=== PATIENT | male | born 1980 | race Caucasian/White ===

== ENCOUNTER 2016-10-31 14:41 | Emergency (ER) | payer OTHER ==
[2016-10-31] MEDS ORDERED: PANTOPRAZOLE 40MG INJ (PROTONIX) (C9113) As Ordered ONE (15:18)
[2016-10-31 15:37] LABS: BASO # 0.1 K/mm3 (0.0-0.2); BASO % 0.8 % (0.0-1.0); EOS # 0.1 K/mm3 (0.0-0.50); EOS % 0.6 % (0.0-3.0); LARGE UNSTAINED CELL # 0.2 K/mm3 (0.0-0.4); LARGE UNSTAINED CELL % 2.2 % (0.0-4.0); LYMPH # 2.3 K/mm3 (1.5-4.5); LYMPH % 23.6 % (24.0-44.0); MEAN CORPUSCULAR HEMOGLOBIN 32.5 pg (27.0-33.0); MEAN CORPUSCULAR HGB CONC 34.9 g/dl (32.0-36.5); MEAN CORPUSCULAR VOLUME 93.2 fl (80.0-96.0); MONO # 0.6 K/mm3 (0.0-0.8); MONO % 5.7 % (0.0-5.0); NEUTROPHILS # 6.5 K/mm3 (1.8-7.7); PLATELET COUNT, AUTOMATED 295 k/mm3 (150-450); WHITE BLOOD COUNT 9.7 K/mm3 (4.0-10.0)
[2016-10-31 15:41] LABS: INR 0.94
--- NOTE | 2016-10-31 15:50 | REP ---
Clinical: Epigastric and abdominal pain. Technique: Upright view of the chest with supine and upright views of the abdomen and pelvis. Findings: Frontal upright view of the chest demonstrates no acute cardiopulmonary process or free air below the diaphragm to suspect pneumoperitoneum. Supine and upright views of the abdomen and pelvis demonstrate nonspecific bowel gas pattern without obstruction or perforation. No organomegaly. No abnormal calcifications. Skeletal structures normal for age. Impression: Nonspecific bowel gas pattern. Signed by Siddharth Leon MD 10/31/2016 03:41 P
[2016-10-31 16:05] LABS: ALBUMIN 4.6 GM/DL (3.2-5.2); ALKALINE PHOSPHATASE 95 U/L (45-117); ALT/SGPT 57 U/L (12-78); ANION GAP 11 MEQ/L (8-16); AST/SGOT 36 U/L (15-37); BILIRUBIN,DIRECT 0.1 MG/DL (0.0-0.2); BILIRUBIN,TOTAL 0.3 MG/DL (0.2-1.0); BLOOD UREA NITROGEN 14 MG/DL (7-18); CALCIUM LEVEL 9.4 MG/DL (8.5-10.1); CARBON DIOXIDE LEVEL 28 MEQ/L (21-32); CHLORIDE LEVEL 100 MEQ/L (98-107); CREATININE FOR GFR 0.95 MG/DL (0.70-1.30); GLOMERULAR FILTRATION RATE > 60.0 (>60); GLUCOSE, FASTING 95 MG/DL (70-105); POTASSIUM SERUM 3.5 MEQ/L (3.5-5.1); SODIUM LEVEL 139 MEQ/L (136-145); TOTAL PROTEIN 8.8 GM/DL (6.4-8.2)
--- NOTE | 2016-10-31 17:20 | EDDOCDS ---
Physician Documentation [facility] Name: Hosea Grewal Age: 35 yrs Sex: Male : 1980 Arrival Date: 10/31/2016 Time: 14:41 Bed I2 / M2 Private MD: No Pcp Disposition: 10/31/16 17:07 Discharged to Home/Self Care. Impression: Gastritis, unspecified - ALCOHOL INDUCED. - Condition is Stable. - Discharge Instructions: Gastritis, Adult. - Prescriptions for Prilosec 20 mg Oral Capsule - take 1 capsule by ORAL route once daily; 10 capsule. ZOFRAN ODT 4 mg - dissolve 1 tablet by ORAL route 4 times per day As needed do not chew, do not swallow whole; 10 tablet. - Medication Reconciliation, Work Release Form - 1 day, Local Pharmacy Hours form. - [facility] up: [facility]; When: 2 - 3 days; Reason: Recheck today's complaints, Continuance of care. - Problem is new. - Symptoms have improved. - Notes: USE MEDICATION INSTRUTCED, FOLLOW UP WITH THE GRADUATE MEDICAL PROGRAM, RETURN TO THE ER IF THE SYMPTOMS WORSEN OR BECOME CONCERNING Historical: - Allergies: no known allergies; - Home Meds: 1. none - PMHx: none; - PSHx: none; - Social history: Smoking status: Electronic cigarettes No barriers to communication noted, The patient speaks fluent Uzbek, Speaks appropriately for age. - : The pt / caregiver states he / she is not on anticoagulants. Home medication list is obtained from the patient. - Exposure Risk Screening:: None identified. Vital Signs: 10/31 14:43 BP 165 / 94; Pulse 91; Resp 18; Temp 98.8(O); Pulse Ox 97% on R/A; Weight 81.65 kg / lr2 180.01 lbs (R); Height 5 ft. 6 in. (167.64 cm) (R); Pain 0/10; 14:56 BP 132 / 84 LA Sitting (man/); srm 15:30 BP 130 / 84 LA Supine (auto/lg); Pulse 85; jjr 15:31 BP 136 / 93 LA Sitting (auto/lg); Pulse 86; jjr 15:31 BP 146 / 87 LA Standing (auto/lg); Pulse 81; jjr 17:17 BP 129 / 80; Pulse 88; Resp 18; Temp 98.4(O); Pulse Ox 97% on R/A; Pain 0/10; jjr 14:43 Body Mass Index 29.05 (81.65 kg, 167.64 cm) lr2 15:31 readily tolerated position changes jjr MDM: 15:04 IV Saline Lock ordered. ar2 15:04 Orthostatic VS ordered. ar2 15:04 NS 0.9% 1000 ml IV at bolus once ordered. ar2 15:04 pantoprazole 40 mg IV at bolus once ordered. ar2 15:04 Consult PFS/PSA/Oceanography Teacher: Resources/Social Work ordered. ar2 15:05 CBC with Diff Ordered. EDMS 15:05 MED Profile Ordered. EDMS 15:05 Liver Profile Ordered. EDMS 15:05 PT/INR Ordered. EDMS 15:05 Lipase Ordered. EDMS 15:05 Type & Screen Ordered. EDMS 15:06 Abdomen, Flat\E\Upright,PA Chest Ordered. EDMS 15:51 Financial registration complete. ks16 15:52 CBC with Diff Reviewed. ar2 15:52 PT/INR Reviewed. ar2 15:56 Fluid Challenge ordered. ar2 16:09 [facility] Payment Agreement was scanned into [employer] and attached to record. ks16 16:27 Liver Profile Reviewed. ck7 16:27 MED Profile Reviewed. ck7 16:27 Lipase Reviewed. ck7 16:27 Type & Screen Reviewed. ck7 16:27 Abdomen, Flat\E\Upright,PA Chest Reviewed. ck7 16:40 PSA Outpatient Referrals was scanned into [employer] and attached to record. jfb 16:40 Consult PFS/PSA/Oceanography Teacher: Resources/Social Work complete. jfb Administered Medications: 15:30 Drug: NS 0.9% 1000 ml [sodium chloride 0.9 % intravenous solution] Route: IV; Rate: jjr bolus; Site: right antecubital; 15:30 Drug: pantoprazole 40 mg [pantoprazole 40 mg intravenous solution] Route: IV; Rate: jjr bolus; Site: right antecubital; Signatures: Dispatcher MedHost EDMS Flakita Hernandez RN RN srm Raymond, Jessica, RN RN jjNed Hinton PA-C PA-C ar2 Jade Bray, PSA PSA Heri Ferreira, RPA-C RPA-Cck7 Vikki Castaneda, Reg Reg ks16 The chart was reviewed and I authenticate all verbal orders and agree with the evaluation and treatment provided.Attachments: 16:09 [facility] Payment Agreement [email or web address] MTDD
--- NOTE | 2016-10-31 17:20 | EDDOCDS ---
Nurse's Notes [facility] Name: Hosea Grewal Age: 35 yrs Sex: Male : 1980 Arrival Date: 10/31/2016 Time: 14:41 Bed I2 / M2 Private MD: No Pcp Diagnosis: Gastritis, unspecified-ALCOHOL INDUCED Presentation: 10/31 14:52 Presenting complaint: Patient states: last might dry heaved and then voited stomach srm bile with blood. for 4 days stomach has been queezy and gassy. no abd pain. Adult Sepsis Screening: The patient does not have new or worsening altered mentation. Patient's respiratory rate is less than 22. Systolic blood pressure is greater than 100. Patient has a qSOFA score of 0- Negative Sepsis Screen. Suicide/Homicide risk assessment- the patient denies having any suicidal and/or homicidal ideations and does not present with any other emotional, behavioral or mental health complaints. Status: Patient is not a service center specialist or dependent. Transition of care: patient was not received from another setting of care. 14:52 Acuity: PENNIE Level 3 srm 14:52 Method Of Arrival: Walkin/Carried/Asstd srm Triage Assessment: 14:54 General: Appears in no apparent distress, Behavior is appropriate for age, cooperative. srm Pain: Denies pain. 14:54 HIV screening NA for this visit Offered previously. srm Historical: - Allergies: no known allergies; - Home Meds: 1. none - PMHx: none; - PSHx: none; - Social history: Smoking status: Electronic cigarettes No barriers to communication noted, The patient speaks fluent Lao, Speaks appropriately for age. - : The pt / caregiver states he / she is not on anticoagulants. Home medication list is obtained from the patient. - Exposure Risk Screening:: None identified. Screenin:32 Screening information is obtained from the patient. Fall risk: No risks identified. jjr Assistance ADL's: requires no assistance with activities of daily living. Abuse/DV Screen: The patient / caregiver reports he/she is: not in a situation that causes fear, pain or injury. Nutritional screening: No deficits noted. Advance Directives: There is no active DNR order. home support is adequate. Assessment: 15:31 General: Appears in no apparent distress, well nourished, well groomed, Behavior is jjr appropriate for age. Pain: Location: epigastric area Quality of pain is described as aching, Aggravated by lying supine. Neurological: No deficits noted. Respiratory: No deficits noted. GI: Abdomen is non- distended Bowel sounds present X 4 quads. Abd is soft and non tender X 4 quads. Reports nausea. Derm: No deficits noted. 16:26 General: Appears in no apparent distress, tolerating sips of gingerale reports jjr improvement in epigastric pain. 17:19 General: Appears in no apparent distress. Pain: Denies pain. jjr Social Work Consult: 16:41 Social Work Note: Met with PT per his request to discuss treatment options for jfb alcoholism. 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 He is able to maintain employment, a relationship and is a father and that he easily stays sober when working. PT denies SI/HI or hallucinations and we reviewed referral information provided to him. Vital Signs: 14:43 BP 165 / 94; Pulse 91; Resp 18; Temp 98.8(O); Pulse Ox 97% on R/A; Weight 81.65 kg (R); lr2 Height 5 ft. 6 in. (167.64 cm) (R); Pain 0/10; 14:56 BP 132 / 84 LA Sitting (man/); srm 15:30 BP 130 / 84 LA Supine (auto/lg); Pulse 85; jjr 15:31 BP 136 / 93 LA Sitting (auto/lg); Pulse 86; jjr 15:31 BP 146 / 87 LA Standing (auto/lg); Pulse 81; jjr 17:17 BP 129 / 80; Pulse 88; Resp 18; Temp 98.4(O); Pulse Ox 97% on R/A; Pain 0/10; jjr 14:43 Body Mass Index 29.05 (81.65 kg, 167.64 cm) lr2 15:31 readily tolerated position changes jjr Vitals: 14:43 Log In Time: October 31, 2016 at 14:41. lr2 ED Course: 14:43 Patient visited by Maria Teresa Polanco. lr2 14:43 Patient moved to Waiting lr2 14:44 No Pcp is Private Physician. lr2 14:44 Patient moved to Pre RCE lr2 14:52 Patient moved to Triage 1 srm 14:53 Triage Initiated srm 14:54 Ned Gamez PA-C is PHCP. ar2 14:54 Armani Shaw MD is Attending Physician. ar2 14:54 Patient visited by Ned Gamez PA-C. ar2 15:06 Patient moved to I3 / M3 rs6 15:07 Patient moved to I2 / M2 jam1 15:30 Inserted saline lock: 20 gauge in right antecubital area and blood collected. Labs jjr drawn. (by ED staff). Sent per order to lab. 15:32 Patient visited by Anjali Prakash RN. jjr 15:34 Pt greeted and oriented to ED. Patient advised of names of staff involved in care, jam1 location of call aguilar, wait times and NPO status. Patient has correct armband on for positive identification. Placed in gown. Bed in low position. Call light in reach. Side rails up X 1. Door closed. 15:52 Abdomen, Flat\E\Upright,PA Chest Returned. EDMS 16:04 PHCP role handed off by Ned Gamez PA-C ck7 16:04 Heri Livingston RPA-C is PHCP. ck7 16:09 [facility] was [place] into AddressReport and attached to record. ks16 16:26 Patient visited by Anjali Prakash RN. jjr 16:40 PSA Outpatient Referrals was scanned into AddressReport and attached to record. jfb 17:07 Patient visited by Heri Livingston RPA-C. ck7 17:07 [facility] is Referral Physician. ck7 17:17 Discontinued lock intact, bleeding controlled, pressure dressing applied, No jjr redness/swelling at site. No procedures done that require assistance. 17:19 The patient / caregiver is instructed regarding the plan of care and ED course. jjr Administered Medications: 15:30 Drug: NS 0.9% 1000 ml [sodium chloride 0.9 % intravenous solution] Route: IV; Rate: jjr bolus; Site: right antecubital; 15:30 Drug: pantoprazole 40 mg [pantoprazole 40 mg intravenous solution] Route: IV; Rate: jjr bolus; Site: right antecubital; Order Results: Lab Order: CBC with Diff; SPEC'M 10/31/16 15:16 Test: WHITE BLOOD COUNT; Value: 9.7; Range: 4.0-10.0; Units: K/mm3; Status: F Test: RED BLOOD COUNT; Value: 5.03; Range: 4.30-6.10; Units: M/mm3; Status: F Test: HEMOGLOBIN; Value: 16.4; Range: 14.0-18.0; Units: g/dl; Status: F Test: HEMATOCRIT; Value: 46.9; Range: 42.0-52.0; Units: %; Status: F Test: MEAN CORPUSCULAR VOLUME; Value: 93.2; Range: 80.0-96.0; Units: fl; Status: F Test: MEAN CORPUSCULAR HEMOGLOBIN; Value: 32.5; Range: 27.0-33.0; Units: pg; Status: F Test: MEAN CORPUSCULAR HGB CONC; Value: 34.9; Range: 32.0-36.5; Units: g/dl; Status: F Test: RED CELL DISTRIBUTION WIDTH; Value: 12.0; Range: 11.5-14.5; Units: %; Status: F Test: PLATELET COUNT, AUTOMATED; Value: 295; Range: 150-450; Units: k/mm3; Status: F Test: NEUTROPHILS %; Value: 67.0; Range: 36.0-66.0; Abnormal: Above high normal; Units: %; Status: F Test: LYMPH %; Value: 23.6; Range: 24.0-44.0; Abnormal: Below low normal; Units: %; Status: F Test: MONO %; Value: 5.7; Range: 0.0-5.0; Abnormal: Above high normal; Units: %; Status: F Test: EOS %; Value: 0.6; Range: 0.0-3.0; Units: %; Status: F Test: BASO %; Value: 0.8; Range: 0.0-1.0; Units: %; Status: F Test: LARGE UNSTAINED CELL %; Value: 2.2; Range: 0.0-4.0; Units: %; Status: F Test: NEUTROPHILS #; Value: 6.5; Range: 1.8-7.7; Units: K/mm3; Status: F Test: LYMPH #; Value: 2.3; Range: 1.5-4.5; Units: K/mm3; Status: F Test: MONO #; Value: 0.6; Range: 0.0-0.8; Units: K/mm3; Status: F Test: EOS #; Value: 0.1; Range: 0.0-0.50; Units: K/mm3; Status: F Test: BASO #; Value: 0.1; Range: 0.0-0.2; Units: K/mm3; Status: F Test: LARGE UNSTAINED CELL #; Value: 0.2; Range: 0.0-0.4; Units: K/mm3; Status: F Lab Order: MED Profile; SPEC'M 10/31/16 15:16 Test: GLUCOSE, FASTING; Value: 95; Range: 70-105; Units: MG/DL; Status: F Test: BLOOD UREA NITROGEN; Value: 14; Range: 7-18; Units: MG/DL; Status: F Test: CREATININE FOR GFR; Value: 0.95; Range: 0.70-1.30; Units: MG/DL; Status: F Test: GLOMERULAR FILTRATION RATE; Value: > 60.0; Range: >60; Status: F Test: SODIUM LEVEL; Value: 139; Range: 136-145; Units: MEQ/L; Status: F Test: POTASSIUM SERUM; Value: 3.5; Range: 3.5-5.1; Units: MEQ/L; Status: F Test: CHLORIDE LEVEL; Value: 100; Range: 98-107; Units: MEQ/L; Status: F Test: CARBON DIOXIDE LEVEL; Value: 28; Range: 21-32; Units: MEQ/L; Status: F Test: ANION GAP; Value: 11; Range: 8-16; Units: MEQ/L; Status: F Test: CALCIUM LEVEL; Value: 9.4; Range: 8.5-10.1; Units: MG/DL; Status: F Test Note: ; Units are mL/min/1.73 m2 Chronic Kidney Disease Staging per NKF: Stage I & II GFR >=60 Normal to Mildly Decreased Stage III GFR 30-59 Moderately Decreased Stage IV GFR 15-29 Severely Decreased Stage V GFR <15 Very Little GFR Left ESRD GFR <15 on SENIOR ENVIRONMENTAL ENGINEER Lab Order: Liver Profile; [facility] 15:16 Test: AST/SGOT; Value: 36; Range: 15-37; Units: U/L; Status: F Test: ALT/SGPT; Value: 57; Range: 12-78; Units: U/L; Status: F Test: ALKALINE PHOSPHATASE; Value: 95; Range: 45-117; Units: U/L; Status: F Test: BILIRUBIN,TOTAL; Value: 0.3; Range: 0.2-1.0; Units: MG/DL; Status: F Test: BILIRUBIN,DIRECT; Value: 0.1; Range: 0.0-0.2; Units: MG/DL; Status: F Test: TOTAL PROTEIN; Value: 8.8; Range: 6.4-8.2; Abnormal: Above high normal; Units: GM/DL; Status: F Test: ALBUMIN; Value: 4.6; Range: 3.2-5.2; Units: GM/DL; Status: F Test: ALBUMIN/GLOBULIN RATIO; Value: 1.10; Range: 1.00-1.93; Status: F Lab Order: PT/INR; [facility] 15:16 Test: PROTHROMBIN TIME; Value: 12.7; Range: 12.3-14.5; Units: SECONDS; Status: F Test: INR; Value: 0.94; Status: F Test Note: ; THERAPUTIC HUMAN INR VALUES INDICATIONS NORMAL RANGES PROPHYLAXIS/TREATMENT OF: VENOUS THROMBOSIS 2.0-3.0 PULMONARY EMBOLISM 2.0-3.0 PREVENTION OF SYSTEMIC EMBOLISM FROM: TISSUE HEART VALVES 2.0-3.0 ACUTE MYOCARDIAL INFARCTION 2.0-3.0 VALVULAR HEART DISEASE 2.0-3.0 ATRIAL FIBRILLATION 2.0-3.0 MECHANICAL VALVES(HIGH RISK) 2.5-3.5 RECURRENT MYOCARDIAL INFARCTION 2.5-3.5 Lab Order: Lipase; [facility] 15:16 Test: LIPASE; Value: 225; Range: 73-393; Units: U/L; Status: F Lab Order: Type & Screen; [facility] 15:16 Test: BLOOD TYPE; Value: O POS; Status: F Test: AB SCREEN (INDIRECT CARY)VIS; Value: NEGATIVE; Status: F Radiology Order: Abdomen, Flat\E\Upright,PA Chest Test: Abdomen, Flat\E\Upright,PA Chest REASON FOR EXAMINATION: epigastric pain, hematemesis; Clinical: Epigastric and abdominal pain.; ; Technique: Upright view of the chest with supine and upright views of the; abdomen and pelvis.; ; Findings: Frontal upright view of the chest demonstrates no acute; cardiopulmonary process or free air below the diaphragm to suspect; pneumoperitoneum. Supine and upright views of the abdomen and pelvis demonstrate; nonspecific bowel gas pattern without obstruction or perforation. No; organomegaly. No abnormal calcifications. Skeletal structures normal for age.; ; Impression:; Nonspecific bowel gas pattern.; ; ; Signed by; Siddharth Leon MD 10/31/2016 03:41 P; Outcome: 17:07 Discharge ordered by Provider. ck7 17:19 Discharge Assessment: patient administered narcotics - no. The following High Risk jjr Discharge criteria are identified: None. Discharged to home ambulatory. Condition: stable. Discharge instructions given to patient, Instructed on discharge instructions, follow up and referral plans. medication usage, Demonstrated understanding of instructions, medications, Prescriptions given X 2, Work note provided to patient. No special radiology studies were completed. Property sent home with patient. 17:19 Patient left the ED. jjr Signatures: Dispatcher MedHost EDMS Flakita Hernandez, RN RN Janet Edmondson, REEL SLITTER REEL SLITTER jam1 Anjali Prakash RN RN jjr Robertshaw, Aaron, PA-C PA-C ar2 Jade Bray, PSA PSA joseb Heri Livingston, RPA-C RPA-Cck7 Jie Knight, REEL SLITTER REEL SLITTER rs6 Vikki Castaneda, Reg Reg ks16 Maria Teresa Polanco lr2 MTDD
--- NOTE | 2016-11-02 18:20 | EDDOCDS ---
Physician Documentation [facility] Name: Hosea Grewal Age: 35 yrs Sex: Male : 1980 Arrival Date: 10/31/2016 Time: 14:41 Bed I2 / M2 Private MD: No Pcp Disposition: 10/31/16 17:07 Discharged to Home/Self Care. Impression: Gastritis, unspecified - ALCOHOL INDUCED. - Condition is Stable. - Discharge Instructions: Gastritis, Adult. - Prescriptions for Prilosec 20 mg Oral Capsule - take 1 capsule by ORAL route once daily; 10 capsule. ZOFRAN ODT 4 mg - dissolve 1 tablet by ORAL route 4 times per day As needed do not chew, do not swallow whole; 10 tablet. - Medication Reconciliation, Work Release Form - 1 day, Local Pharmacy Hours form. - Follow up: [facility]; When: 2 - 3 days; Reason: Recheck today's complaints, Continuance of care. - Problem is new. - Symptoms have improved. - Notes: USE MEDICATION INSTRUTCED, FOLLOW UP WITH THE GRADUATE MEDICAL PROGRAM, RETURN TO THE ER IF THE SYMPTOMS WORSEN OR BECOME CONCERNING Historical: - Allergies: no known allergies; - Home Meds: 1. none - PMHx: none; - PSHx: none; - Social history: Smoking status: Electronic cigarettes No barriers to communication noted, The patient speaks fluent Macedonian, Speaks appropriately for age. - : The pt / caregiver states he / she is not on anticoagulants. Home medication list is obtained from the patient. - Exposure Risk Screening:: None identified. Vital Signs: 10/31 14:43 BP 165 / 94; Pulse 91; Resp 18; Temp 98.8(O); Pulse Ox 97% on R/A; Weight 81.65 kg / lr2 180.01 lbs (R); Height 5 ft. 6 in. (167.64 cm) (R); Pain 0/10; 14:56 BP 132 / 84 LA Sitting (man/); srm 15:30 BP 130 / 84 LA Supine (auto/lg); Pulse 85; jjr 15:31 BP 136 / 93 LA Sitting (auto/lg); Pulse 86; jjr 15:31 BP 146 / 87 LA Standing (auto/lg); Pulse 81; jjr 17:17 BP 129 / 80; Pulse 88; Resp 18; Temp 98.4(O); Pulse Ox 97% on R/A; Pain 0/10; jjr 14:43 Body Mass Index 29.05 (81.65 kg, 167.64 cm) lr2 15:31 readily tolerated position changes jjr MDM: 15:04 IV Saline Lock ordered. ar2 15:04 Orthostatic VS ordered. ar2 15:04 NS 0.9% 1000 ml IV at bolus once ordered. ar2 15:04 pantoprazole 40 mg IV at bolus once ordered. ar2 15:04 Consult PFS/PSA/Bisque Finisher: Resources/Social Work ordered. ar2 15:05 CBC with Diff Ordered. EDMS 15:05 MED Profile Ordered. EDMS 15:05 Liver Profile Ordered. EDMS 15:05 PT/INR Ordered. EDMS 15:05 Lipase Ordered. EDMS 15:05 Type & Screen Ordered. EDMS 15:06 Abdomen, Flat\E\Upright,PA Chest Ordered. EDMS 15:51 Financial registration complete. [email or web address] 15:52 CBC with Diff Reviewed. ar2 15:52 PT/INR Reviewed. ar2 15:56 Fluid Challenge ordered. ar2 16:09 [facility] Payment Agreement was scanned into [employer] and attached to record. ks16 16:27 Liver Profile Reviewed. ck7 16:27 MED Profile Reviewed. ck7 16:27 Lipase Reviewed. ck7 16:27 Type & Screen Reviewed. ck7 16:27 Abdomen, Flat\E\Upright,PA Chest Reviewed. ck7 16:40 PSA Outpatient Referrals was scanned into [employer] and attached to record. jfb 16:40 Consult PFS/PSA/Bisque Finisher: Resources/Social Work complete. jfb 11/01 18:25 T-Sheet-- Draft Copy was scanned into [employer] and attached to record. klr Administered Medications: 10/31 15:30 Drug: NS 0.9% 1000 ml [sodium chloride 0.9 % intravenous solution] Route: IV; Rate: jjr bolus; Site: right antecubital; 16:30 Follow up: IV Status: Completed infusion; IV Intake: 1000ml jjr 15:30 Drug: pantoprazole 40 mg [pantoprazole 40 mg intravenous solution] Route: IV; Rate: jjr bolus; Site: right antecubital; Signatures: Dispatcher MedHost EDMS Hernandez Flakita, RN RN Anjali Torrez RN RN Ned Gomez, PA-C PA-C ar2 Jade Bray, PSA PSA joseb Heri Livingston, RPA-C RPA-Cck7 Vikki Castaneda, Reg Reg ks16 Theresa Cordon The chart was reviewed and I authenticate all verbal orders and agree with the evaluation and treatment provided.Attachments: 16:09 [facility] Payment Agreement [email or web address] 11/01 18:25 T-Sheet-- Draft Copy klr Chart Complete MTDD
--- NOTE | 2016-11-02 18:20 | EDDOCDS ---
Physician Documentation [facility] Name: Hosea Grewal Age: 35 yrs Sex: Male : 1980 Arrival Date: 10/31/2016 Time: 14:41 Bed I2 / M2 Private MD: No Pcp Disposition: 10/31/16 17:07 Discharged to Home/Self Care. Impression: Gastritis, unspecified - ALCOHOL INDUCED. - Condition is Stable. - Discharge Instructions: Gastritis, Adult. - Prescriptions for Prilosec 20 mg Oral Capsule - take 1 capsule by ORAL route once daily; 10 capsule. ZOFRAN ODT 4 mg - dissolve 1 tablet by ORAL route 4 times per day As needed do not chew, do not swallow whole; 10 tablet. - Medication Reconciliation, Work Release Form - 1 day, Local Pharmacy Hours form. - Follow up: [facility]; When: 2 - 3 days; Reason: Recheck today's complaints, Continuance of care. - Problem is new. - Symptoms have improved. - Notes: USE MEDICATION INSTRUTCED, FOLLOW UP WITH THE GRADUATE MEDICAL PROGRAM, RETURN TO THE ER IF THE SYMPTOMS WORSEN OR BECOME CONCERNING Historical: - Allergies: no known allergies; - Home Meds: 1. none - PMHx: none; - PSHx: none; - Social history: Smoking status: Electronic cigarettes No barriers to communication noted, The patient speaks fluent Polish, Speaks appropriately for age. - : The pt / caregiver states he / she is not on anticoagulants. Home medication list is obtained from the patient. - Exposure Risk Screening:: None identified. Vital Signs: 10/31 14:43 BP 165 / 94; Pulse 91; Resp 18; Temp 98.8(O); Pulse Ox 97% on R/A; Weight 81.65 kg / lr2 180.01 lbs (R); Height 5 ft. 6 in. (167.64 cm) (R); Pain 0/10; 14:56 BP 132 / 84 LA Sitting (man/); srm 15:30 BP 130 / 84 LA Supine (auto/lg); Pulse 85; jjr 15:31 BP 136 / 93 LA Sitting (auto/lg); Pulse 86; jjr 15:31 BP 146 / 87 LA Standing (auto/lg); Pulse 81; jjr 17:17 BP 129 / 80; Pulse 88; Resp 18; Temp 98.4(O); Pulse Ox 97% on R/A; Pain 0/10; jjr 14:43 Body Mass Index 29.05 (81.65 kg, 167.64 cm) lr2 15:31 readily tolerated position changes jjr MDM: 15:04 IV Saline Lock ordered. ar2 15:04 Orthostatic VS ordered. ar2 15:04 NS 0.9% 1000 ml IV at bolus once ordered. ar2 15:04 pantoprazole 40 mg IV at bolus once ordered. ar2 15:04 Consult PFS/PSA/Special Education Professional: Resources/Social Work ordered. ar2 15:05 CBC with Diff Ordered. EDMS 15:05 MED Profile Ordered. EDMS 15:05 Liver Profile Ordered. EDMS 15:05 PT/INR Ordered. EDMS 15:05 Lipase Ordered. EDMS 15:05 Type & Screen Ordered. EDMS 15:06 Abdomen, Flat\E\Upright,PA Chest Ordered. EDMS 15:51 Financial registration complete. [email or web address] 15:52 CBC with Diff Reviewed. ar2 15:52 PT/INR Reviewed. ar2 15:56 Fluid Challenge ordered. ar2 16:09 ON LICENSE OF [facility] Payment Agreement was scanned into [employer] and attached to record. [email or web address] 16:27 Liver Profile Reviewed. ck7 16:27 MED Profile Reviewed. ck7 16:27 Lipase Reviewed. ck7 16:27 Type & Screen Reviewed. ck7 16:27 Abdomen, Flat\E\Upright,PA Chest Reviewed. ck7 16:40 PSA Outpatient Referrals was scanned into [employer] and attached to record. jfb 16:40 Consult PFS/PSA/Special Education Professional: Resources/Social Work complete. jfb 11/01 18:25 T-Sheet-- Draft Copy was scanned into [employer] and attached to record. klr Administered Medications: 10/31 15:30 Drug: NS 0.9% 1000 ml [sodium chloride 0.9 % intravenous solution] Route: IV; Rate: jjr bolus; Site: right antecubital; 16:30 Follow up: IV Status: Completed infusion; IV Intake: 1000ml jjr 15:30 Drug: pantoprazole 40 mg [pantoprazole 40 mg intravenous solution] Route: IV; Rate: jjr bolus; Site: right antecubital; Signatures: Dispatcher MedHost EDMS Hernandez Flakita, RN RN Anjali Torrez RN RN Ned Gomez, PA-C PA-C ar2 Jade Bray, PSA PSA joseb Heri Livingston, RPA-C RPA-Cck7 Vikki Castaneda, Reg Reg ks16 Theresa Cordon The chart was reviewed and I authenticate all verbal orders and agree with the evaluation and treatment provided.Attachments: 16:09 ON LICENSE OF [facility] Payment Agreement [email or web address] 11/01 18:25 T-Sheet-- Draft Copy klr Chart Complete MTDD
--- NOTE | 2016-11-02 18:20 | EDDOCDS ---
Nurse's Notes [facility] Name: Hosea Grewal Age: 35 yrs Sex: Male : 1980 Arrival Date: 10/31/2016 Time: 14:41 Bed I2 / M2 Private MD: No Pcp Diagnosis: Gastritis, unspecified-ALCOHOL INDUCED Presentation: 10/31 14:52 Presenting complaint: Patient states: last might dry heaved and then voited stomach srm bile with blood. for 4 days stomach has been queezy and gassy. no abd pain. Adult Sepsis Screening: The patient does not have new or worsening altered mentation. Patient's respiratory rate is less than 22. Systolic blood pressure is greater than 100. Patient has a qSOFA score of 0- Negative Sepsis Screen. Suicide/Homicide risk assessment- the patient denies having any suicidal and/or homicidal ideations and does not present with any other emotional, behavioral or mental health complaints. 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 Transition of care: patient was not received from another setting of care. 14:52 Acuity: PENNIE Level 3 srm 14:52 Method Of Arrival: Walkin/Carried/Asstd srm Triage Assessment: 14:54 General: Appears in no apparent distress, Behavior is appropriate for age, cooperative. srm Pain: Denies pain. 14:54 HIV screening NA for this visit Offered previously. srm Historical: - Allergies: no known allergies; - Home Meds: 1. none - PMHx: none; - PSHx: none; - Social history: Smoking status: Electronic cigarettes No barriers to communication noted, The patient speaks fluent Lithuanian, Speaks appropriately for age. - : The pt / caregiver states he / she is not on anticoagulants. Home medication list is obtained from the patient. - Exposure Risk Screening:: None identified. Screenin:32 Screening information is obtained from the patient. Fall risk: No risks identified. jjr Assistance ADL's: requires no assistance with activities of daily living. Abuse/DV Screen: The patient / caregiver reports he/she is: not in a situation that causes fear, pain or injury. Nutritional screening: No deficits noted. Advance Directives: There is no active DNR order. home support is adequate. Assessment: 15:31 General: Appears in no apparent distress, well nourished, well groomed, Behavior is jjr appropriate for age. Pain: Location: epigastric area Quality of pain is described as aching, Aggravated by lying supine. Neurological: No deficits noted. Respiratory: No deficits noted. GI: Abdomen is non- distended Bowel sounds present X 4 quads. Abd is soft and non tender X 4 quads. Reports nausea. Derm: No deficits noted. 16:26 General: Appears in no apparent distress, tolerating sips of gingerale reports jjr improvement in epigastric pain. 17:19 General: Appears in no apparent distress. Pain: Denies pain. jjr Social Work Consult: 16:41 Social Work Note: Met with PT per his request to discuss treatment options for jfb alcoholism. 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 He is able to maintain employment, a relationship and is a father and that he easily stays sober when working. PT denies SI/HI or hallucinations and we reviewed referral information provided to him. Vital Signs: 14:43 BP 165 / 94; Pulse 91; Resp 18; Temp 98.8(O); Pulse Ox 97% on R/A; Weight 81.65 kg (R); lr2 Height 5 ft. 6 in. (167.64 cm) (R); Pain 0/10; 14:56 BP 132 / 84 LA Sitting (man/); srm 15:30 BP 130 / 84 LA Supine (auto/lg); Pulse 85; jjr 15:31 BP 136 / 93 LA Sitting (auto/lg); Pulse 86; jjr 15:31 BP 146 / 87 LA Standing (auto/lg); Pulse 81; jjr 17:17 BP 129 / 80; Pulse 88; Resp 18; Temp 98.4(O); Pulse Ox 97% on R/A; Pain 0/10; jjr 14:43 Body Mass Index 29.05 (81.65 kg, 167.64 cm) lr2 15:31 readily tolerated position changes jjr Vitals: 14:43 Log In Time: October 31, 2016 at 14:41. lr2 ED Course: 14:43 Patient visited by Maria Teresa Polanco. lr2 14:43 Patient moved to Waiting lr2 14:44 No Pcp is Private Physician. lr2 14:44 Patient moved to Pre RCE lr2 14:52 Patient moved to Triage 1 srm 14:53 Triage Initiated srm 14:54 Ned Gamez PA-C is PHCP. ar2 14:54 Armani Shaw MD is Attending Physician. ar2 14:54 Patient visited by Ned Gamez PA-C. ar2 15:06 Patient moved to I3 / M3 rs6 15:07 Patient moved to I2 / M2 jam1 15:30 Inserted saline lock: 20 gauge in right antecubital area and blood collected. Labs jjr drawn. (by ED staff). Sent per order to lab. 15:32 Patient visited by Anjali Prakash RN. jjr 15:34 Pt greeted and oriented to ED. Patient advised of names of staff involved in care, jam1 location of call aguilar, wait times and NPO status. Patient has correct armband on for positive identification. Placed in gown. Bed in low position. Call light in reach. Side rails up X 1. Door closed. 15:52 Abdomen, Flat\E\Upright,PA Chest Returned. EDMS 16:04 PHCP role handed off by Ned Gamez PA-C ck7 16:04 Heri Livingston RPA-C is PHCP. ck7 16:09 [facility] [place] was [place] into [employer] and attached to record. ks16 16:26 Patient visited by Anjali Prakash RN. jjr 16:40 PSA Outpatient Referrals was scanned into [employer] and attached to record. jfb 17:07 Patient visited by Heri Livingston RPA-C. ck7 17:07 [facility] is Referral Physician. ck7 17:17 Discontinued lock intact, bleeding controlled, pressure dressing applied, No jjr redness/swelling at site. No procedures done that require assistance. 17:19 The patient / caregiver is instructed regarding the plan of care and ED course. jjr 11/01 18:25 T-Sheet-- Draft Copy was scanned into [employer] and attached to record. klr Administered Medications: 10/31 15:30 Drug: NS 0.9% 1000 ml [sodium chloride 0.9 % intravenous solution] Route: IV; Rate: jjr bolus; Site: right antecubital; 16:30 Follow up: IV Status: Completed infusion; IV Intake: 1000ml jjr 15:30 Drug: pantoprazole 40 mg [pantoprazole 40 mg intravenous solution] Route: IV; Rate: jjr bolus; Site: right antecubital; Intake: 16:30 IV: 1000.00ml; Total: 1000.00ml. jjr Order Results: Lab Order: CBC with Diff; SPEC'M 10/31/16 15:16 Test: WHITE BLOOD COUNT; Value: 9.7; Range: 4.0-10.0; Units: K/mm3; Status: F Test: RED BLOOD COUNT; Value: 5.03; Range: 4.30-6.10; Units: M/mm3; Status: F Test: HEMOGLOBIN; Value: 16.4; Range: 14.0-18.0; Units: g/dl; Status: F Test: HEMATOCRIT; Value: 46.9; Range: 42.0-52.0; Units: %; Status: F Test: MEAN CORPUSCULAR VOLUME; Value: 93.2; Range: 80.0-96.0; Units: fl; Status: F Test: MEAN CORPUSCULAR HEMOGLOBIN; Value: 32.5; Range: 27.0-33.0; Units: pg; Status: F Test: MEAN CORPUSCULAR HGB CONC; Value: 34.9; Range: 32.0-36.5; Units: g/dl; Status: F Test: RED CELL DISTRIBUTION WIDTH; Value: 12.0; Range: 11.5-14.5; Units: %; Status: F Test: PLATELET COUNT, AUTOMATED; Value: 295; Range: 150-450; Units: k/mm3; Status: F Test: NEUTROPHILS %; Value: 67.0; Range: 36.0-66.0; Abnormal: Above high normal; Units: %; Status: F Test: LYMPH %; Value: 23.6; Range: 24.0-44.0; Abnormal: Below low normal; Units: %; Status: F Test: MONO %; Value: 5.7; Range: 0.0-5.0; Abnormal: Above high normal; Units: %; Status: F Test: EOS %; Value: 0.6; Range: 0.0-3.0; Units: %; Status: F Test: BASO %; Value: 0.8; Range: 0.0-1.0; Units: %; Status: F Test: LARGE UNSTAINED CELL %; Value: 2.2; Range: 0.0-4.0; Units: %; Status: F Test: NEUTROPHILS #; Value: 6.5; Range: 1.8-7.7; Units: K/mm3; Status: F Test: LYMPH #; Value: 2.3; Range: 1.5-4.5; Units: K/mm3; Status: F Test: MONO #; Value: 0.6; Range: 0.0-0.8; Units: K/mm3; Status: F Test: EOS #; Value: 0.1; Range: 0.0-0.50; Units: K/mm3; Status: F Test: BASO #; Value: 0.1; Range: 0.0-0.2; Units: K/mm3; Status: F Test: LARGE UNSTAINED CELL #; Value: 0.2; Range: 0.0-0.4; Units: K/mm3; Status: F Lab Order: MED Profile; SPEC'M 10/31/16 15:16 Test: GLUCOSE, FASTING; Value: 95; Range: 70-105; Units: MG/DL; Status: F Test: BLOOD UREA NITROGEN; Value: 14; Range: 7-18; Units: MG/DL; Status: F Test: CREATININE FOR GFR; Value: 0.95; Range: 0.70-1.30; Units: MG/DL; Status: F Test: GLOMERULAR FILTRATION RATE; Value: > 60.0; Range: >60; Status: F Test: SODIUM LEVEL; Value: 139; Range: 136-145; Units: MEQ/L; Status: F Test: POTASSIUM SERUM; Value: 3.5; Range: 3.5-5.1; Units: MEQ/L; Status: F Test: CHLORIDE LEVEL; Value: 100; Range: 98-107; Units: MEQ/L; Status: F Test: CARBON DIOXIDE LEVEL; Value: 28; Range: 21-32; Units: MEQ/L; Status: F Test: ANION GAP; Value: 11; Range: 8-16; Units: MEQ/L; Status: F Test: CALCIUM LEVEL; Value: 9.4; Range: 8.5-10.1; Units: MG/DL; Status: F Test Note: ; Units are mL/min/1.73 m2 Chronic Kidney Disease Staging per NKF: Stage I & II GFR >=60 Normal to Mildly Decreased Stage III GFR 30-59 Moderately Decreased Stage IV GFR 15-29 Severely Decreased Stage V GFR <15 Very Little GFR Left ESRD GFR <15 on ENVIRONMENTAL ENGINEERING MANAGER Lab Order: Liver Profile; SPEC'10/31/16 15:16 Test: AST/SGOT; Value: 36; Range: 15-37; Units: U/L; Status: F Test: ALT/SGPT; Value: 57; Range: 12-78; Units: U/L; Status: F Test: ALKALINE PHOSPHATASE; Value: 95; Range: 45-117; Units: U/L; Status: F Test: BILIRUBIN,TOTAL; Value: 0.3; Range: 0.2-1.0; Units: MG/DL; Status: F Test: BILIRUBIN,DIRECT; Value: 0.1; Range: 0.0-0.2; Units: MG/DL; Status: F Test: TOTAL PROTEIN; Value: 8.8; Range: 6.4-8.2; Abnormal: Above high normal; Units: GM/DL; Status: F Test: ALBUMIN; Value: 4.6; Range: 3.2-5.2; Units: GM/DL; Status: F Test: ALBUMIN/GLOBULIN RATIO; Value: 1.10; Range: 1.00-1.93; Status: F Lab Order: PT/INR; SPEC10/31/16 15:16 Test: PROTHROMBIN TIME; Value: 12.7; Range: 12.3-14.5; Units: SECONDS; Status: F Test: INR; Value: 0.94; Status: F Test Note: ; THERAPUTIC HUMAN INR VALUES INDICATIONS NORMAL RANGES PROPHYLAXIS/TREATMENT OF: VENOUS THROMBOSIS 2.0-3.0 PULMONARY EMBOLISM 2.0-3.0 PREVENTION OF SYSTEMIC EMBOLISM FROM: TISSUE HEART VALVES 2.0-3.0 ACUTE MYOCARDIAL INFARCTION 2.0-3.0 VALVULAR HEART DISEASE 2.0-3.0 ATRIAL FIBRILLATION 2.0-3.0 MECHANICAL VALVES(HIGH RISK) 2.5-3.5 RECURRENT MYOCARDIAL INFARCTION 2.5-3.5 Lab Order: Lipase; SPEC'10/31/16 15:16 Test: LIPASE; Value: 225; Range: 73-393; Units: U/L; Status: F Lab Order: Type & Screen; SPEC'M 10/31/16 15:16 Test: BLOOD TYPE; Value: O POS; Status: F Test: AB SCREEN (INDIRECT CARY)VIS; Value: NEGATIVE; Status: F Radiology Order: Abdomen, Flat\E\Upright,PA Chest Test: Abdomen, Flat\E\Upright,PA Chest REASON FOR EXAMINATION: epigastric pain, hematemesis; Clinical: Epigastric and abdominal pain.; ; Technique: Upright view of the chest with supine and upright views of the; abdomen and pelvis.; ; Findings: Frontal upright view of the chest demonstrates no acute; cardiopulmonary process or free air below the diaphragm to suspect; pneumoperitoneum. Supine and upright views of the abdomen and pelvis demonstrate; nonspecific bowel gas pattern without obstruction or perforation. No; organomegaly. No abnormal calcifications. Skeletal structures normal for age.; ; Impression:; Nonspecific bowel gas pattern.; ; ; Signed by; Siddharth Leon MD 10/31/2016 03:41 P; Outcome: 17:07 Discharge ordered by Provider. ck7 17:19 Discharge Assessment: patient administered narcotics - no. The following High Risk jjr Discharge criteria are identified: None. Discharged to home ambulatory. Condition: stable. Discharge instructions given to patient, Instructed on discharge instructions, follow up and referral plans. medication usage, Demonstrated understanding of instructions, medications, Prescriptions given X 2, Work note provided to patient. No special radiology studies were completed. Property sent home with patient. 17:19 Patient left the ED. jjr Signatures: Dispatcher [employer] EDMS Flakita Hernandez, RN RN Janet Edmondson, HORSER UP HORSER UP jam1 Anjali Prakash, FRANCISCO RN jNed Banegas, PA-C PA-C ar2 Jade Bray, PSA PSA joseb Heri Livingston, RPA-C [id number] Jie Knight, HORSER UP HORSER UP rs6 Vikki Castaneda, Reg Reg ks16 Theresa Cordon Laura lr2 Chart Complete MTDD
--- NOTE | 2016-11-02 21:03 | EDDOCDS ---
Physician Documentation [facility] Name: Hosea Grewal Age: 35 yrs Sex: Male : 1980 Arrival Date: 10/31/2016 Time: 14:41 Bed I2 / M2 Private MD: No Pcp Disposition: 10/31/16 17:07 Discharged to Home/Self Care. Impression: Gastritis, unspecified - ALCOHOL INDUCED. - Condition is Stable. - Discharge Instructions: Gastritis, Adult. - Prescriptions for Prilosec 20 mg Oral Capsule - take 1 capsule by ORAL route once daily; 10 capsule. ZOFRAN ODT 4 mg - dissolve 1 tablet by ORAL route 4 times per day As needed do not chew, do not swallow whole; 10 tablet. - Medication Reconciliation, Work Release Form - 1 day, Local Pharmacy Hours form. - [facility] up[facility]; When: 2 - 3 days; Reason: Recheck today's complaints, Continuance of care. - Problem is new. - Symptoms have improved. - Notes: USE MEDICATION INSTRUTCED, FOLLOW UP WITH THE GRADUATE MEDICAL PROGRAM, RETURN TO THE ER IF THE SYMPTOMS WORSEN OR BECOME CONCERNING Historical: - Allergies: no known allergies; - Home Meds: 1. none - PMHx: none; - PSHx: none; - Social history: Smoking status: Electronic cigarettes No barriers to communication noted, The patient speaks fluent Urdu, Speaks appropriately for age. - : The pt / caregiver states he / she is not on anticoagulants. Home medication list is obtained from the patient. - Exposure Risk Screening:: None identified. Vital Signs: 10/31 14:43 BP 165 / 94; Pulse 91; Resp 18; Temp 98.8(O); Pulse Ox 97% on R/A; Weight 81.65 kg / lr2 180.01 lbs (R); Height 5 ft. 6 in. (167.64 cm) (R); Pain 0/10; 14:56 BP 132 / 84 LA Sitting (man/); srm 15:30 BP 130 / 84 LA Supine (auto/lg); Pulse 85; jjr 15:31 BP 136 / 93 LA Sitting (auto/lg); Pulse 86; jjr 15:31 BP 146 / 87 LA Standing (auto/lg); Pulse 81; jjr 17:17 BP 129 / 80; Pulse 88; Resp 18; Temp 98.4(O); Pulse Ox 97% on R/A; Pain 0/10; jjr 14:43 Body Mass Index 29.05 (81.65 kg, 167.64 cm) lr2 15:31 readily tolerated position changes jjr MDM: 15:04 IV Saline Lock ordered. ar2 15:04 Orthostatic VS ordered. ar2 15:04 NS 0.9% 1000 ml IV at bolus once ordered. ar2 15:04 pantoprazole 40 mg IV at bolus once ordered. ar2 15:04 Consult PFS/PSA/Log Feeder: Resources/Social Work ordered. ar2 15:05 CBC with Diff Ordered. EDMS 15:05 MED Profile Ordered. EDMS 15:05 Liver Profile Ordered. EDMS 15:05 PT/INR Ordered. EDMS 15:05 Lipase Ordered. EDMS 15:05 Type & Screen Ordered. EDMS 15:06 Abdomen, Flat\E\Upright,PA Chest Ordered. EDMS 15:51 Financial registration complete. ks16 15:52 CBC with Diff Reviewed. ar2 15:52 PT/INR Reviewed. ar2 15:56 Fluid Challenge ordered. ar2 16:09 [facility] Payment Agreement was scanned into [employer] and attached to record. ks16 16:27 Liver Profile Reviewed. ck7 16:27 MED Profile Reviewed. ck7 16:27 Lipase Reviewed. ck7 16:27 Type & Screen Reviewed. ck7 16:27 Abdomen, Flat\E\Upright,PA Chest Reviewed. ck7 16:40 PSA Outpatient Referrals was scanned into [employer] and attached to record. jfb 16:40 Consult PFS/PSA/Log Feeder: Resources/Social Work complete. jfb 11/01 18:25 T-Sheet-- Draft Copy was scanned into [employer] and attached to record. klr Administered Medications: 10/31 15:30 Drug: NS 0.9% 1000 ml [sodium chloride 0.9 % intravenous solution] Route: IV; Rate: jjr bolus; Site: right antecubital; 16:30 Follow up: IV Status: Completed infusion; IV Intake: 1000ml jjr 15:30 Drug: pantoprazole 40 mg [pantoprazole 40 mg intravenous solution] Route: IV; Rate: jjr bolus; Site: right antecubital; Signatures: Dispatcher [employer] EDMS Hernandez Flakita, RN RN Anjali Torrez RN RN Ned Gomez, PA-C PA-C ar2 Jade Bray, PSA PSA joseb Heri Livingston, RPA-C [id number] Vikki Castaneda, Reg Reg ks16 Theresa Cordon The chart was reviewed and I authenticate all verbal orders and agree with the evaluation and treatment provided.Attachments: 16:09 [facility] Payment Agreement [email or web address] 11/01 18:25 T-Sheet-- Draft Copy klr Chart Complete MTDD
--- NOTE | 2016-11-02 21:03 | EDDOCDS ---
Physician Documentation [facility] Name: Hosea Grewal Age: 35 yrs Sex: Male : 1980 Arrival Date: 10/31/2016 Time: 14:41 Bed I2 / M2 Private MD: No Pcp Disposition: 10/31/16 17:07 Discharged to Home/Self Care. Impression: Gastritis, unspecified - ALCOHOL INDUCED. - Condition is Stable. - Discharge Instructions: Gastritis, Adult. - Prescriptions for Prilosec 20 mg Oral Capsule - take 1 capsule by ORAL route once daily; 10 capsule. ZOFRAN ODT 4 mg - dissolve 1 tablet by ORAL route 4 times per day As needed do not chew, do not swallow whole; 10 tablet. - Medication Reconciliation, Work Release Form - 1 day, Local Pharmacy Hours form. - Follow up: [facility]; When: 2 - 3 days; Reason: Recheck today's complaints, Continuance of care. - Problem is new. - Symptoms have improved. - Notes: USE MEDICATION INSTRUTCED, FOLLOW UP WITH THE GRADUATE MEDICAL PROGRAM, RETURN TO THE ER IF THE SYMPTOMS WORSEN OR BECOME CONCERNING Historical: - Allergies: no known allergies; - Home Meds: 1. none - PMHx: none; - PSHx: none; - Social history: Smoking status: Electronic cigarettes No barriers to communication noted, The patient speaks fluent Maori, Speaks appropriately for age. - : The pt / caregiver states he / she is not on anticoagulants. Home medication list is obtained from the patient. - Exposure Risk Screening:: None identified. Vital Signs: 10/31 14:43 BP 165 / 94; Pulse 91; Resp 18; Temp 98.8(O); Pulse Ox 97% on R/A; Weight 81.65 kg / lr2 180.01 lbs (R); Height 5 ft. 6 in. (167.64 cm) (R); Pain 0/10; 14:56 BP 132 / 84 LA Sitting (man/); srm 15:30 BP 130 / 84 LA Supine (auto/lg); Pulse 85; jjr 15:31 BP 136 / 93 LA Sitting (auto/lg); Pulse 86; jjr 15:31 BP 146 / 87 LA Standing (auto/lg); Pulse 81; jjr 17:17 BP 129 / 80; Pulse 88; Resp 18; Temp 98.4(O); Pulse Ox 97% on R/A; Pain 0/10; jjr 14:43 Body Mass Index 29.05 (81.65 kg, 167.64 cm) lr2 15:31 readily tolerated position changes jjr MDM: 15:04 IV Saline Lock ordered. ar2 15:04 Orthostatic VS ordered. ar2 15:04 NS 0.9% 1000 ml IV at bolus once ordered. ar2 15:04 pantoprazole 40 mg IV at bolus once ordered. ar2 15:04 Consult PFS/PSA/Community Service Coordinator: Resources/Social Work ordered. ar2 15:05 CBC with Diff Ordered. EDMS 15:05 MED Profile Ordered. EDMS 15:05 Liver Profile Ordered. EDMS 15:05 PT/INR Ordered. EDMS 15:05 Lipase Ordered. EDMS 15:05 Type & Screen Ordered. EDMS 15:06 Abdomen, Flat\E\Upright,PA Chest Ordered. EDMS 15:51 Financial registration complete. [email or web address] 15:52 CBC with Diff Reviewed. ar2 15:52 PT/INR Reviewed. ar2 15:56 Fluid Challenge ordered. ar2 16:09 [facility] Payment Agreement was scanned into [employer] and attached to record. ks16 16:27 Liver Profile Reviewed. ck7 16:27 MED Profile Reviewed. ck7 16:27 Lipase Reviewed. ck7 16:27 Type & Screen Reviewed. ck7 16:27 Abdomen, Flat\E\Upright,PA Chest Reviewed. ck7 16:40 PSA Outpatient Referrals was scanned into [employer] and attached to record. jfb 16:40 Consult PFS/PSA/Community Service Coordinator: Resources/Social Work complete. jfb 11/01 18:25 T-Sheet-- Draft Copy was scanned into [employer] and attached to record. klr Administered Medications: 10/31 15:30 Drug: NS 0.9% 1000 ml [sodium chloride 0.9 % intravenous solution] Route: IV; Rate: jjr bolus; Site: right antecubital; 16:30 Follow up: IV Status: Completed infusion; IV Intake: 1000ml jjr 15:30 Drug: pantoprazole 40 mg [pantoprazole 40 mg intravenous solution] Route: IV; Rate: jjr bolus; Site: right antecubital; Signatures: Dispatcher [employer] EDMS Hernandez Flakita, RN RN Anjali Torrez RN RN Ned Gomez, PA-C PA-C ar2 Jade Bray, PSA PSA joseb Heri Livingston, RPA-C [id number] Vikki Castaneda, Reg Reg ks16 Theresa Cordon The chart was reviewed and I authenticate all verbal orders and agree with the evaluation and treatment provided.Attachments: 16:09 [facility] Payment Agreement [email or web address] 11/01 18:25 T-Sheet-- Draft Copy klr Chart Complete MTDD
--- NOTE | 2016-11-02 21:03 | EDDOCDS ---
Nurse's Notes [facility] Name: Hosea Grewal Age: 35 yrs Sex: Male : 1980 Arrival Date: 10/31/2016 Time: 14:41 Bed I2 / M2 Private MD: No Pcp Diagnosis: Gastritis, unspecified-ALCOHOL INDUCED Presentation: 10/31 14:52 Presenting complaint: Patient states: last might dry heaved and then voited stomach srm bile with blood. for 4 days stomach has been queezy and gassy. no abd pain. Adult Sepsis Screening: The patient does not have new or worsening altered mentation. Patient's respiratory rate is less than 22. Systolic blood pressure is greater than 100. Patient has a qSOFA score of 0- Negative Sepsis Screen. Suicide/Homicide risk assessment- the patient denies having any suicidal and/or homicidal ideations and does not present with any other emotional, behavioral or mental health complaints. Status: Patient is not a answering service telephone operator or dependent. Transition of care: patient was not received from another setting of care. 14:52 Acuity: PENNIE Level 3 srm 14:52 Method Of Arrival: Walkin/Carried/Asstd srm Triage Assessment: 14:54 General: Appears in no apparent distress, Behavior is appropriate for age, cooperative. srm Pain: Denies pain. 14:54 HIV screening NA for this visit Offered previously. srm Historical: - Allergies: no known allergies; - Home Meds: 1. none - PMHx: none; - PSHx: none; - Social history: Smoking status: Electronic cigarettes No barriers to communication noted, The patient speaks fluent Divehi, Speaks appropriately for age. - : The pt / caregiver states he / she is not on anticoagulants. Home medication list is obtained from the patient. - Exposure Risk Screening:: None identified. Screenin:32 Screening information is obtained from the patient. Fall risk: No risks identified. jjr Assistance ADL's: requires no assistance with activities of daily living. Abuse/DV Screen: The patient / caregiver reports he/she is: not in a situation that causes fear, pain or injury. Nutritional screening: No deficits noted. Advance Directives: There is no active DNR order. home support is adequate. Assessment: 15:31 General: Appears in no apparent distress, well nourished, well groomed, Behavior is jjr appropriate for age. Pain: Location: epigastric area Quality of pain is described as aching, Aggravated by lying supine. Neurological: No deficits noted. Respiratory: No deficits noted. GI: Abdomen is non- distended Bowel sounds present X 4 quads. Abd is soft and non tender X 4 quads. Reports nausea. Derm: No deficits noted. 16:26 General: Appears in no apparent distress, tolerating sips of gingerale reports jjr improvement in epigastric pain. 17:19 General: Appears in no apparent distress. Pain: Denies pain. jjr Social Work Consult: 16:41 Social Work Note: Met with PT per his request to discuss treatment options for jfb alcoholism. 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 He is able to maintain employment, a relationship and is a father and that he easily stays sober when working. PT denies SI/HI or hallucinations and we reviewed referral information provided to him. Vital Signs: 14:43 BP 165 / 94; Pulse 91; Resp 18; Temp 98.8(O); Pulse Ox 97% on R/A; Weight 81.65 kg (R); lr2 Height 5 ft. 6 in. (167.64 cm) (R); Pain 0/10; 14:56 BP 132 / 84 LA Sitting (man/); srm 15:30 BP 130 / 84 LA Supine (auto/lg); Pulse 85; jjr 15:31 BP 136 / 93 LA Sitting (auto/lg); Pulse 86; jjr 15:31 BP 146 / 87 LA Standing (auto/lg); Pulse 81; jjr 17:17 BP 129 / 80; Pulse 88; Resp 18; Temp 98.4(O); Pulse Ox 97% on R/A; Pain 0/10; jjr 14:43 Body Mass Index 29.05 (81.65 kg, 167.64 cm) lr2 15:31 readily tolerated position changes jjr Vitals: 14:43 Log In Time: October 31, 2016 at 14:41. lr2 ED Course: 14:43 Patient visited by Maria Teresa Polanco. lr2 14:43 Patient moved to Waiting lr2 14:44 No Pcp is Private Physician. lr2 14:44 Patient moved to Pre RCE lr2 14:52 Patient moved to Triage 1 srm 14:53 Triage Initiated srm 14:54 Ned Gamez PA-C is PHCP. ar2 14:54 Armani Shaw MD is Attending Physician. ar2 14:54 Patient visited by Ned Gamez PA-C. ar2 15:06 Patient moved to I3 / M3 rs6 15:07 Patient moved to I2 / M2 jam1 15:30 Inserted saline lock: 20 gauge in right antecubital area and blood collected. Labs jjr drawn. (by ED staff). Sent per order to lab. 15:32 Patient visited by Anjali Prakash RN. jjr 15:34 Pt greeted and oriented to ED. Patient advised of names of staff involved in care, jam1 location of call aguilar, wait times and NPO status. Patient has correct armband on for positive identification. Placed in gown. Bed in low position. Call light in reach. Side rails up X 1. Door closed. 15:52 Abdomen, Flat\E\Upright,PA Chest Returned. EDMS 16:04 PHCP role handed off by Ned Gamez PA-C ck7 16:04 Heri Livingston RPA-C is PHCP. ck7 16:09 [facility] [place] Payment Agreement was scanned into Jeb[employer] and attached to record. ks16 16:26 Patient visited by Anjali Prakash RN. jjr 16:40 PSA Outpatient Referrals was scanned into Jebbit and attached to record. jfb 17:07 Patient visited by Heri Livingston RPA-C. ck7 17:07 [facility] is Referral Physician. ck7 17:17 Discontinued lock intact, bleeding controlled, pressure dressing applied, No jjr redness/swelling at site. No procedures done that require assistance. 17:19 The patient / caregiver is instructed regarding the plan of care and ED course. jjr 11/01 18:25 T-Sheet-- Draft Copy was scanned into Jebbit and attached to record. klr Administered Medications: 10/31 15:30 Drug: NS 0.9% 1000 ml [sodium chloride 0.9 % intravenous solution] Route: IV; Rate: jjr bolus; Site: right antecubital; 16:30 Follow up: IV Status: Completed infusion; IV Intake: 1000ml jjr 15:30 Drug: pantoprazole 40 mg [pantoprazole 40 mg intravenous solution] Route: IV; Rate: jjr bolus; Site: right antecubital; Intake: 16:30 IV: 1000.00ml; Total: 1000.00ml. jjr Order Results: Lab Order: CBC with Diff; SPEC'M 10/31/16 15:16 Test: WHITE BLOOD COUNT; Value: 9.7; Range: 4.0-10.0; Units: K/mm3; Status: F Test: RED BLOOD COUNT; Value: 5.03; Range: 4.30-6.10; Units: M/mm3; Status: F Test: HEMOGLOBIN; Value: 16.4; Range: 14.0-18.0; Units: g/dl; Status: F Test: HEMATOCRIT; Value: 46.9; Range: 42.0-52.0; Units: %; Status: F Test: MEAN CORPUSCULAR VOLUME; Value: 93.2; Range: 80.0-96.0; Units: fl; Status: F Test: MEAN CORPUSCULAR HEMOGLOBIN; Value: 32.5; Range: 27.0-33.0; Units: pg; Status: F Test: MEAN CORPUSCULAR HGB CONC; Value: 34.9; Range: 32.0-36.5; Units: g/dl; Status: F Test: RED CELL DISTRIBUTION WIDTH; Value: 12.0; Range: 11.5-14.5; Units: %; Status: F Test: PLATELET COUNT, AUTOMATED; Value: 295; Range: 150-450; Units: k/mm3; Status: F Test: NEUTROPHILS %; Value: 67.0; Range: 36.0-66.0; Abnormal: Above high normal; Units: %; Status: F Test: LYMPH %; Value: 23.6; Range: 24.0-44.0; Abnormal: Below low normal; Units: %; Status: F Test: MONO %; Value: 5.7; Range: 0.0-5.0; Abnormal: Above high normal; Units: %; Status: F Test: EOS %; Value: 0.6; Range: 0.0-3.0; Units: %; Status: F Test: BASO %; Value: 0.8; Range: 0.0-1.0; Units: %; Status: F Test: LARGE UNSTAINED CELL %; Value: 2.2; Range: 0.0-4.0; Units: %; Status: F Test: NEUTROPHILS #; Value: 6.5; Range: 1.8-7.7; Units: K/mm3; Status: F Test: LYMPH #; Value: 2.3; Range: 1.5-4.5; Units: K/mm3; Status: F Test: MONO #; Value: 0.6; Range: 0.0-0.8; Units: K/mm3; Status: F Test: EOS #; Value: 0.1; Range: 0.0-0.50; Units: K/mm3; Status: F Test: BASO #; Value: 0.1; Range: 0.0-0.2; Units: K/mm3; Status: F Test: LARGE UNSTAINED CELL #; Value: 0.2; Range: 0.0-0.4; Units: K/mm3; Status: F Lab Order: MED Profile; SPEC'M 10/31/16 15:16 Test: GLUCOSE, FASTING; Value: 95; Range: 70-105; Units: MG/DL; Status: F Test: BLOOD UREA NITROGEN; Value: 14; Range: 7-18; Units: MG/DL; Status: F Test: CREATININE FOR GFR; Value: 0.95; Range: 0.70-1.30; Units: MG/DL; Status: F Test: GLOMERULAR FILTRATION RATE; Value: > 60.0; Range: >60; Status: F Test: SODIUM LEVEL; Value: 139; Range: 136-145; Units: MEQ/L; Status: F Test: POTASSIUM SERUM; Value: 3.5; Range: 3.5-5.1; Units: MEQ/L; Status: F Test: CHLORIDE LEVEL; Value: 100; Range: 98-107; Units: MEQ/L; Status: F Test: CARBON DIOXIDE LEVEL; Value: 28; Range: 21-32; Units: MEQ/L; Status: F Test: ANION GAP; Value: 11; Range: 8-16; Units: MEQ/L; Status: F Test: CALCIUM LEVEL; Value: 9.4; Range: 8.5-10.1; Units: MG/DL; Status: F Test Note: ; Units are mL/min/1.73 m2 Chronic Kidney Disease Staging per NKF: Stage I & II GFR >=60 Normal to Mildly Decreased Stage III GFR 30-59 Moderately Decreased Stage IV GFR 15-29 Severely Decreased Stage V GFR <15 Very Little GFR Left ESRD GFR <15 on WOUND CARE TECHNICIAN Lab Order: Liver Profile; SPEC'10/31/16 15:16 Test: AST/SGOT; Value: 36; Range: 15-37; Units: U/L; Status: F Test: ALT/SGPT; Value: 57; Range: 12-78; Units: U/L; Status: F Test: ALKALINE PHOSPHATASE; Value: 95; Range: 45-117; Units: U/L; Status: F Test: BILIRUBIN,TOTAL; Value: 0.3; Range: 0.2-1.0; Units: MG/DL; Status: F Test: BILIRUBIN,DIRECT; Value: 0.1; Range: 0.0-0.2; Units: MG/DL; Status: F Test: TOTAL PROTEIN; Value: 8.8; Range: 6.4-8.2; Abnormal: Above high normal; Units: GM/DL; Status: F Test: ALBUMIN; Value: 4.6; Range: 3.2-5.2; Units: GM/DL; Status: F Test: ALBUMIN/GLOBULIN RATIO; Value: 1.10; Range: 1.00-1.93; Status: F Lab Order: PT/INR; SPEC10/31/16 15:16 Test: PROTHROMBIN TIME; Value: 12.7; Range: 12.3-14.5; Units: SECONDS; Status: F Test: INR; Value: 0.94; Status: F Test Note: ; THERAPUTIC HUMAN INR VALUES INDICATIONS NORMAL RANGES PROPHYLAXIS/TREATMENT OF: VENOUS THROMBOSIS 2.0-3.0 PULMONARY EMBOLISM 2.0-3.0 PREVENTION OF SYSTEMIC EMBOLISM FROM: TISSUE HEART VALVES 2.0-3.0 ACUTE MYOCARDIAL INFARCTION 2.0-3.0 VALVULAR HEART DISEASE 2.0-3.0 ATRIAL FIBRILLATION 2.0-3.0 MECHANICAL VALVES(HIGH RISK) 2.5-3.5 RECURRENT MYOCARDIAL INFARCTION 2.5-3.5 Lab Order: Lipase; SPEC'10/31/16 15:16 Test: LIPASE; Value: 225; Range: 73-393; Units: U/L; Status: F Lab Order: Type & Screen; SPEC'M 10/31/16 15:16 Test: BLOOD TYPE; Value: O POS; Status: F Test: AB SCREEN (INDIRECT CARY)VIS; Value: NEGATIVE; Status: F Radiology Order: Abdomen, Flat\E\Upright,PA Chest Test: Abdomen, Flat\E\Upright,PA Chest REASON FOR EXAMINATION: epigastric pain, hematemesis; Clinical: Epigastric and abdominal pain.; ; Technique: Upright view of the chest with supine and upright views of the; abdomen and pelvis.; ; Findings: Frontal upright view of the chest demonstrates no acute; cardiopulmonary process or free air below the diaphragm to suspect; pneumoperitoneum. Supine and upright views of the abdomen and pelvis demonstrate; nonspecific bowel gas pattern without obstruction or perforation. No; organomegaly. No abnormal calcifications. Skeletal structures normal for age.; ; Impression:; Nonspecific bowel gas pattern.; ; ; Signed by; Siddharth Leon MD 10/31/2016 03:41 P; Outcome: 17:07 Discharge ordered by Provider. ck7 17:19 Discharge Assessment: patient administered narcotics - no. The following High Risk jjr Discharge criteria are identified: None. Discharged to home ambulatory. Condition: stable. Discharge instructions given to patient, Instructed on discharge instructions, follow up and referral plans. medication usage, Demonstrated understanding of instructions, medications, Prescriptions given X 2, Work note provided to patient. No special radiology studies were completed. Property sent home with patient. 17:19 Patient left the ED. jjr Signatures: Dispatcher [employer] EDMS Flakita Hernandez, RN RN Janet Edmondson, BIOFUELS OPERATIONS MANAGER BIOFUELS OPERATIONS MANAGER jam1 Anjali Prakash, FRANCISCO RN jNed Banegas, PA-C PA-C ar2 Jade Bray, PSA PSA joseb Heri Livingston, RPA-C [id number] Jie Knight, BIOFUELS OPERATIONS MANAGER BIOFUELS OPERATIONS MANAGER rs6 Vikki Castaneda, Reg Reg ks16 Theresa Cordon Laura lr2 Chart Complete MTDD
== END 2016-10-31 17:19 | disposition home or self-care (01) ==
LOC: M ED 14:41
DX: K29.20 Alcoholic gastritis without bleeding (principal)

== ENCOUNTER 2017-02-20 14:51 | Emergency (ER) | payer OTHER ==
[~2017-02-20] VITALS: Ht 167.6 cm; Wt 84.1 kg
[2017-02-20 14:52] VITALS: BP 123/75
[2017-02-20] MEDS ORDERED: DOXYCYCLINE HYCLATE 100 MG TAB PO ONE (15:30)
== END 2017-02-20 15:28 | disposition home or self-care (01) ==
LOC: M ED 15:11
DX: S20.361A Insect bite (nonvenomous) of right front wall of thorax, initial encounter (principal); S20.362A Insect bite (nonvenomous) of left front wall of thorax, initial encounter; W57.XXXA Bitten or stung by nonvenomous insect and other nonvenomous arthropods, initial encounter; Y92.89 Other specified places as the place of occurrence of the external cause; Y93.89 Activity, other specified; Y99.8 Other external cause status; F17.210 Nicotine dependence, cigarettes, uncomplicated

== ENCOUNTER 2017-03-23 11:52 | Emergency (ER) | payer MEDICAID, OTHER ==
[~2017-03-23] VITALS: Ht 167.6 cm; Wt 84.7 kg
[2017-03-23 13:05] LABS: BASO # 0.1 K/mm3 (0.0-0.2); BASO % 0.7 % (0.0-1.0); EOS # 0.1 K/mm3 (0.0-0.50); LARGE UNSTAINED CELL # 0.2 K/mm3 (0.0-0.4); LARGE UNSTAINED CELL % 1.9 % (0.0-4.0); LYMPH # 2.5 K/mm3 (1.5-4.5); LYMPH % 23.6 % (24.0-44.0); MEAN CORPUSCULAR HEMOGLOBIN 32.8 pg (27.0-33.0); MEAN CORPUSCULAR HGB CONC 33.9 g/dl (32.0-36.5); MEAN CORPUSCULAR VOLUME 96.9 fl (80.0-96.0); MONO # 0.6 K/mm3 (0.0-0.8); MONO % 6.5 % (0.0-5.0); NEUTROPHILS # 6.5 K/mm3 (1.8-7.7); NEUTROPHILS % 66.3 % (36.0-66.0); PLATELET COUNT, AUTOMATED 279 k/mm3 (150-450); RED CELL DISTRIBUTION WIDTH 12.4 % (11.5-14.5); WHITE BLOOD COUNT 9.9 K/mm3 (4.0-10.0)
[2017-03-23] MEDS ORDERED: GASTROGRAFIN SOLUTION 30ML (Q9963) PO ONE (13:20)
[2017-03-23 13:23] LABS: ALBUMIN 4.1 GM/DL (3.2-5.2); ALBUMIN/GLOBULIN RATIO 1.11 (1.00-1.93); ALKALINE PHOSPHATASE 92 U/L (45-117); ALT/SGPT 48 U/L (12-78); ANION GAP 7 MEQ/L (8-16); AST/SGOT 26 U/L (15-37); BILIRUBIN,TOTAL 0.4 MG/DL (0.2-1.0); BLOOD UREA NITROGEN 10 MG/DL (7-18); CALCIUM LEVEL 9.1 MG/DL (8.5-10.1); CARBON DIOXIDE LEVEL 27 MEQ/L (21-32); CHLORIDE LEVEL 103 MEQ/L (98-107); CREATININE FOR GFR 0.74 MG/DL (0.70-1.30); GLOMERULAR FILTRATION RATE > 60.0 (>60); GLUCOSE, FASTING 103 MG/DL (70-105); POTASSIUM SERUM 3.8 MEQ/L (3.5-5.1); SODIUM LEVEL 137 MEQ/L (136-145); TOTAL PROTEIN 7.8 GM/DL (6.4-8.2)
[2017-03-23] MEDS ORDERED: GASTROGRAFIN SOLUTION 30ML PO ONE (13:50)
[2017-03-23] MEDS ORDERED: ISOVUE-370 76% 100ML VIAL (Q9967) As Ordered ONE (15:03)
[2017-03-23] MEDS ORDERED: ONDANSETRON 4MG/2ML VIAL (J2405) IV ONE (16:45)
[2017-03-23] MEDS ORDERED: ZOFR4TAB3 PO (16:47)
[2017-03-23 16:52] VITALS: BP 121/82
--- NOTE | 2017-03-24 06:47 | REP ---
CT ABDOMEN AND PELVIS WITH CONTRAST: HISTORY: Rule out appendicitis. CONTRAST: Isovue 370, 100 mL. The liver, gallbladder, pancreas, spleen, adrenal glands and kidneys are normal in appearance. There is no mass, adenopathy or free fluid. There is very minimal thickening of the terminal ileum and wall of the colon. This may represent enteritis or inflammatory bowel disease. Several diverticula are present in the descending and sigmoid colon. The prostate gland and urinary bladder are normal in appearance. The visualized lungs are clear. IMPRESSION: There is minimal thickening of the wall of the terminal ileum and colon. This may represent enteritis or inflammatory bowel disease. Signed by Chano Herbert MD 03/24/2017 08:11 A
== END 2017-03-23 17:20 | disposition home or self-care (01) ==
LOC: M ED 11:52
DX: A08.4 Viral intestinal infection, unspecified (principal); F17.210 Nicotine dependence, cigarettes, uncomplicated
CPT/HCPCS: 74177; 80053; 83690; 85025; 96374; 99283; J2405; Q9963; Q9967

== ENCOUNTER 2017-04-20 13:43 | Emergency (ER) | payer MEDICAID, OTHER ==
[~2017-04-20] VITALS: Ht 167.6 cm; Wt 83.4 kg
[~2017-04-20 13:43] MED LIST: ZOFR4TAB3 PO
[2017-04-20 13:44] VITALS: BP 129/80
[2017-04-20] MEDS ORDERED: CYCL10TA PO (14:28)
[2017-04-20] MEDS ORDERED: IBUP-1022 PO (14:28)
== END 2017-04-20 15:01 | disposition home or self-care (01) ==
LOC: M ED 13:43
DX: S39.012A Strain of muscle, fascia and tendon of lower back, initial encounter (principal); V93.38XA Fall on board other unpowered watercraft, initial encounter; Y92.89 Other specified places as the place of occurrence of the external cause; Y93.17 Activity, water skiing and wake boarding; Y99.8 Other external cause status; F17.210 Nicotine dependence, cigarettes, uncomplicated; Z91.013 Allergy to seafood

== ENCOUNTER → 2020-10-20 | Outpatient (CLI) | payer SELFPAY ==
[~2020-10-20] MED LIST changes: +CYCL-707 PO; +IBUP-1022 PO; +ZOFR4TAB14 PO; -ZOFR4TAB3 PO
== END ==
LOC: M LABSMTC 12:05
PROVIDERS: ATTEND Pediatrics
DX: Z20.822 Contact with and (suspected) exposure to COVID-19 (principal)

== ENCOUNTER → 2021-02-28 | Outpatient (CLI) | payer SELFPAY | LOC: M LABSMTC 09:55 | PROVIDERS: ATTEND Pediatrics | DX: Z20.822 Contact with and (suspected) exposure to COVID-19 (principal) ==

== ENCOUNTER → 2022-01-08 | Outpatient (CLI) | payer BC | LOC: M OUTALCOH 07:59 | PROVIDERS: ATTEND Psychiatry & Neurology Psychiatry | DX: Z13.39 Encounter for screening examination for other mental health and behavioral disorders (principal) ==

== ENCOUNTER 2022-02-01 07:57 | Outpatient (RCR) | payer BC | END 2022-02-05 | LOC: M OUTALCOH 07:57 | PROVIDERS: ATTEND Psychiatry & Neurology Psychiatry | DX: F10.20 Alcohol dependence, uncomplicated (principal); F12.20 Cannabis dependence, uncomplicated; F17.200 Nicotine dependence, unspecified, uncomplicated ==

== ENCOUNTER 2022-07-29 13:02 | Emergency (ER) | payer BC ==
[~2022-07-29] VITALS: Ht 167.6 cm; Wt 79.0 kg
[2022-07-29] MEDS ORDERED: PANTOPRAZOLE 40MG TAB (PROTONIX) PO ONE (14:30)
[2022-07-29 14:50] LABS: BASO # 0.1 10^3/uL (0.0-0.2); BASO % 0.9 % (0.0-1.0); EOS # 0.2 10^3/uL (0.0-0.5); EOS % 1.3 % (0.0-3.0); HEMOGLOBIN 15.8 g/dl (13.5-17.5); MEAN CORPUSCULAR HEMOGLOBIN 31.7 pg (27.0-33.0); MEAN CORPUSCULAR HGB CONC 32.9 g/dl (32.0-36.5); MEAN CORPUSCULAR VOLUME 96.4 fl (80.0-96.0); MONO # 0.9 10^3/uL (0.0-0.8); MONO % 7.7 % (2.0-8.0); NEUTROPHILS # 7.2 10^3/uL (1.5-8.5); NEUTROPHILS % 62.6 % (36.0-66.0); PLATELET COUNT, AUTOMATED 322 10^3/uL (150-450); RED BLOOD COUNT 4.98 10^6/uL (4.30-6.10); WHITE BLOOD COUNT 11.6 10^3/uL (4.0-10.0)
[2022-07-29 15:25] LABS: ALBUMIN 4.2 G/DL (3.2-5.2); ALT/SGPT 24 U/L (7.0-40); BILIRUBIN,DIRECT 0.1 MG/DL (<0.4); BILIRUBIN,TOTAL 0.4 MG/DL (0.3-1.2); BLOOD UREA NITROGEN 13 MG/DL (9-23); CALCIUM LEVEL 9.1 MG/DL (8.5-10.1); CARBON DIOXIDE LEVEL 28 MMOL/L (20-31); CHLORIDE LEVEL 104 MMOL/L (98-107); CREATININE FOR GFR 0.78 MG/DL (0.70-1.30); GLOMERULAR FILTRATION RATE > 60.0 (>60); GLUCOSE, FASTING 89 MG/DL (60-100); LIPASE 32 U/L (12-53); POTASSIUM SERUM 4.1 MMOL/L (3.5-5.1); SODIUM LEVEL 140 MMOL/L (136-145); TOTAL PROTEIN 7.6 G/DL (5.7-8.2)
[2022-07-29] MEDS ORDERED: PEPC1TAB5 PO (15:37)
[2022-07-29 15:43] VITALS: BP 110/78
== END 2022-07-29 15:49 | disposition home or self-care (01) ==
LOC: M ED 13:02
DX: K29.70 Gastritis, unspecified, without bleeding (principal); F17.210 Nicotine dependence, cigarettes, uncomplicated; Z91.013 Allergy to seafood

== ENCOUNTER 2022-10-13 11:25 | Emergency (ER) | payer BC ==
[~2022-10-13] VITALS: Ht 167.6 cm; Wt 101.2 kg
[~2022-10-13 11:25] MED LIST changes: +PEPC1TAB5 PO
[2022-10-13] MEDS ORDERED: PENI500T PO (11:42)
[2022-10-13] MEDS ORDERED: ACETAMINOPHEN 500 MG TAB PO ONE (11:45)
[2022-10-13] MEDS ORDERED: IBUPROFEN 800 MG TAB PO ONE (12:50)
[2022-10-13] MEDS ORDERED: NS 1,000 ML IV ONE (13:15)
[2022-10-13] MEDS ORDERED: AMPICILLIN SOD/SULBACTAM SOD 3 GM in D5W MINI-BAG PLUS 100 ML IV ONE (13:25)
[2022-10-13 13:54] LABS: BASO # 0.1 10^3/uL (0.0-0.2); BASO % 0.4 % (0.0-1.0); HEMATOCRIT 45.2 % (42.0-52.0); HEMOGLOBIN 15.1 g/dl (13.5-17.5); LYMPH # 1.6 10^3/uL (1.5-5.0); LYMPH % 6.8 % (24.0-44.0); MEAN CORPUSCULAR HEMOGLOBIN 31.6 pg (27.0-33.0); MEAN CORPUSCULAR HGB CONC 33.4 g/dl (32.0-36.5); MEAN CORPUSCULAR VOLUME 94.6 fl (80.0-96.0); MONO % 7.6 % (2.0-8.0); NEUTROPHILS # 20.2 10^3/uL (1.5-8.5); NEUTROPHILS % 84.4 % (36.0-66.0); PLATELET COUNT, AUTOMATED 220 10^3/uL (150-450); RED BLOOD COUNT 4.78 10^6/uL (4.30-6.10); WHITE BLOOD COUNT 23.9 10^3/uL (4.0-10.0)
[2022-10-13] MEDS ORDERED: ISOVUE-370 76% 100ML VIAL As Ordered ONE (13:58)
[2022-10-13 14:02] LABS: ERYTHROCYTE SEDIMENTATION RATE 84 mm/hr (0-15)
[2022-10-13 14:19] LABS: MONO # 1.8 10^3/uL (0.0-0.8)
[2022-10-13] MEDS ORDERED: IBUP80TA PO (16:50)
[2022-10-13] MEDS ORDERED: CLEO300C2 PO (16:50)
[2022-10-13] MEDS ORDERED: BENZ1LOZ9 PO (16:51)
[2022-10-13 17:08] VITALS: BP 127/82
== END 2022-10-13 17:21 | disposition home or self-care (01) ==
LOC: M ED 11:25
DX: J02.9 Acute pharyngitis, unspecified (principal); J31.0 Chronic rhinitis; J32.9 Chronic sinusitis, unspecified; J35.1 Hypertrophy of tonsils; R59.0 Localized enlarged lymph nodes; K21.9 Gastro-esophageal reflux disease without esophagitis; F41.9 Anxiety disorder, unspecified; F17.200 Nicotine dependence, unspecified, uncomplicated; Z91.013 Allergy to seafood
CPT/HCPCS: 70491; 80047; 83605; 85025; 85652; 86140; 87040; 96365; 96366; 96375; 99284; J0295; J1100

== ENCOUNTER 2023-04-17 11:54 | Emergency (ER) | payer BC ==
[~2023-04-17] VITALS: Ht 167.6 cm; Wt 72.9 kg
[~2023-04-17 11:54] MED LIST changes: +BENZ1LOZ9 PO; +CLEO300C2 PO; +FOLIC ACID 1MG TAB PO SCH; +IBUP80TA PO; +MULTIVITAMINS/MINERALS THERAP 1 TAB PO SCH; +PENI500T PO; +THIAMINE 100 MG TAB PO SCH
[2023-04-17] MEDS ORDERED: PANT40TA29 (12:09)
[2023-04-17] MEDS ORDERED: NS 1,000 ML IV ONE (12:50)
[2023-04-17] MEDS ORDERED: LORazepam 2 MG TAB PO PRN (12:50)
[2023-04-17 13:10] LABS: HEMATOCRIT 44.1 % (42.0-52.0); HEMOGLOBIN 15.3 g/dl (13.5-17.5); MEAN CORPUSCULAR HGB CONC 34.7 g/dl (32.0-36.5); MEAN CORPUSCULAR VOLUME 92.3 fl (80.0-96.0); PLATELET COUNT, AUTOMATED 161 10^3/uL (150-450); RED BLOOD COUNT 4.78 10^6/uL (4.30-6.10); WHITE BLOOD COUNT 6.9 10^3/uL (4.0-10.0)
[2023-04-17 13:39] LABS: ETHYL ALCOHOL (ETHANOL) 0.271 % (0.000-0.010)
[2023-04-17 13:41] LABS: ACETAMINOPHEN LEVEL < 2.0 UG/ML (10.0-20.0)
[2023-04-17 13:42] LABS: ALBUMIN 4.4 G/DL (3.2-5.2); ALKALINE PHOSPHATASE 88 U/L (46-116); ALT/SGPT 58 U/L (7.0-40); AST/SGOT 46 U/L (<34); BILIRUBIN,DIRECT 0.2 MG/DL (<0.4); BILIRUBIN,TOTAL 0.6 MG/DL (0.3-1.2); BLOOD UREA NITROGEN 15 MG/DL (9-23); CALCIUM LEVEL 9.5 MG/DL (8.5-10.1); CARBON DIOXIDE LEVEL 22 MMOL/L (20-31); CHLORIDE LEVEL 104 MMOL/L (98-107); CREATININE FOR GFR 0.61 MG/DL (0.70-1.30); GLOMERULAR FILTRATION RATE > 60.0 (>60); GLUCOSE, FASTING 116 MG/DL (60-100); POTASSIUM SERUM 3.9 MMOL/L (3.5-5.1); SALICYLATE LEVEL < 3.0 MG/DL (<30); SODIUM LEVEL 142 MMOL/L (136-145); TOTAL PROTEIN 8.3 G/DL (5.7-8.2)
[2023-04-17 13:44] LABS: THYROID STIMULATING HORMONE 0.626 uIU/ML (0.55-4.78)
[2023-04-17 15:20] LABS: AMPHETAMINES LEVEL URINE NEGATIVE (NEGATIVE); BARBITURATES URINE NEGATIVE (NEGATIVE); COCAINE METABOLITE URINE NEGATIVE (NEGATIVE); PHENCYCLIDINE URINE NEGATIVE (NEGATIVE)
[2023-04-17 15:21] LABS: BENZODIAZEPINES URINE NEGATIVE (NEGATIVE); METHADONE URINE NEGATIVE (NEGATIVE); OPIATES URINE NEGATIVE (NEGATIVE)
[2023-04-17 15:22] LABS: CANNABINOIDS URINE POSITIVE (NEGATIVE)
[2023-04-17 20:49] VITALS: BP 116/69; TEMP 98.5; O2SAT 96
== END 2023-04-17 20:53 | disposition short-term general hospital (02) ==
LOC: M ED 11:54
DX: F10.10 Alcohol abuse, uncomplicated (principal); F41.9 Anxiety disorder, unspecified; K21.9 Gastro-esophageal reflux disease without esophagitis; Z79.899 Other long term (current) drug therapy; Z91.013 Allergy to seafood